=== PATIENT | male | born 1945 | race Caucasian/White ===

== ENCOUNTER → 2020-07-19 10:33 | Outpatient (CLI) | payer OTHER, SELFPAY ==
[2020-07-20 14:09] LABS: COVID19 Sendout Not Detected (Not Detect)
== END ==
PROVIDERS: PCP Family Medicine; Referring Provider Orthopaedic Surgery; Visit Provider Physician Assistant
DX: Z11.59 Encounter for screening for other viral diseases (principal)
CPT/HCPCS: 87635

== ENCOUNTER 2020-07-22 09:22 | Day surgery (SDC) | payer OTHER, SELFPAY ==
[2020-07-15 11:51] VITALS: BMI 23.7
[2020-07-22] VITALS (14 sets, daily range): BP systolic 109–156; BP diastolic 63–88; PULSE 61–94; RESP 10–20; TEMP 36.6–37.1; O2SAT 94–99; BMI 23.0
[2020-07-22] MEDS: LACTATED RINGERS 1,000 ML 42 ML IV ×2 (10:21→13:36)
[2020-07-22] MEDS: ACETAMINOPHEN 325 MG TABLET 975 MG PO (10:21)
[2020-07-22] MEDS: CELECOXIB 200 MG CAPSULE 400 MG PO (10:21)
--- NOTE | 2020-07-22 11:32 | PM.PREOP ---
Pre-operative Note COVID-19 COVID-19 status: Negative Result date/Date tested (Pos, Neg/Pending): 07/20/20 Interval Note History & Physical reviewed/Exam performed by Physician: Yes Changes to H&P: No
[2020-07-22] MEDS: CEFAZOLIN 2 GM/100 ML FROZ.PIGGY IV (12:18)
--- NOTE | 2020-07-22 12:58 | SUR.OPER ---
Lateral on padded OR bed. Gel axillary roll. Arms secured on padded armboard with pillow supporting top arm. Padded hip positioner braces x4 - anterior and posterior chest and pelvis. Additional gel pad used anterior pelvis. Gel pad under bottom leg from knee to foot and secured with tape over sheet.
[2020-07-22] MEDS: TRANEXAMIC ACID 1,000 MG VIAL 1000 MG IV ×2 (13:06→13:52)
[2020-07-22] MEDS: ROPIVACAINE 0.5% PF 20ML 60 ML, MORPHINE 4 MG, KETOROLAC 30 MG INJ (13:07)
--- NOTE | 2020-07-22 14:00 | P.OP_ITS ---
Operative Date/Time/Diagnoses Date of procedure: 07/22/20 Time of procedure: 14:00 Pre-op diagnosis: Right hip degenerative joint disease Post-op diagnosis: same Procedure & Clinicians Procedure: Right total hip arthroplasty (CPT code 08320 with preschool teacher's assistant) Same procedure as scheduled: Yes Indications: Patient is an 74-year-old male with severe right hip DJD. The patient has pain with activities and at rest, limited ambulation and activity tolerance, difficulties with ADLs, and failure of conservative treatment. We have discussed the nature of condition, treatment options, risks and benefits, and patient elects to proceed with total hip arthroplasty and gives informed consent. Surgeon: David Kirk Senior Test Analyst: Alia Stratton Anesthesia Type: General and Spinal Operative Notes Closure Type: primary Specimen(s): none sent Prosthetic devices, grafts, tissues, transplants, or devices: Acetabulum: Deluna and Nephew R3 acetabular component size 54 mm Femoral component: Deluna and Nephew Anthology stem size 10 with high offset Femoral head: 36 mm + 4 cobalt chrome Estimated Blood Loss (mL): 200 Blood products transfused: none Procedure in detail: After satisfaction induction of anesthetic, and administration of IV antibiotics, the patient was positioned in the lateral decubitus position with all bony prominences well padded and pelvic position secured using a hip area mechanic positioning device. Right hip and lower extremity prepped and draped in the usual sterile fashion, 1st dose of intravenous tranexamic acid was administered, then a longitudinal incision was created centered over the greater trochanter and carried sharply through the skin and subcutaneous tissues down to the fascia jack which was divided longitudinally and retracted with a Charnley retractor. External rotators visualize, cut, tagged, and retracted posteriorly, then the capsule was cut in a T-type fashion with the corners tagged and retracted. Hip was dislocated and femoral neck cut made according to preoperative templating. Acetabular retractors then placed, and the acetabular labrum and osteophytes were excised. The acetabulum was then sequentially reamed to 53 mm with an excellent circumferential ream and fit with the trial. The trial component was removed and a permanent size 54 mm Deluna and Nephew R3 acetabular component was selected, positioned, and impacted with satisfactory position and fixation achieved. Permanent liner was then inserted with the elevated lip directed posteriorly. Soft tissue then removed off the lateral femoral neck in the lateral neck was entered using a box osteotome. T- handled reamers placed down the canal followed by sequential broaching to 10 with the final broach left in place for trial reduction with high offset neck which demonstrated excellent leg length, range of motion, and stability characteristics with a 36 mm +4 trial ball. The trial and broach were removed, and a permanent size 10 high offset Deluna and Nephew Anthology stem was selected and inserted with excellent position and fixation achieved. Another trial reduction yielded the above characteristics so the trial ball was exchanged for a permanent 36 mm +4 cobalt chrome ball. The hip was irrigated and reduced and excellent leg length range of motion and stability characteristics were achieved and maintained. Periarticular tissues were infiltrated with ropivacaine, morphine, and Toradol. The hip was copiously irrigated, and the capsule repaired with #2 Ethibond, and the piriformis was repaired back to the greater trochanter with the same. Fascia jack closed with interrupted #1 Ethibond sutures, and the subcutaneous tissues were closed in 2 layers of 0 Vicryl and 2 0 Vicryl. Skin was closed with zip tie closure and sterile dressings applied. Second dose of tranexamic acid was administered intravenously, and the anesthetic was terminated. Complications: none Post-operative Condition: stable Disposition: PACU Plan for aftercare: Patient will be admitted to the acute care [facility], and anticipate discharge on postop day 1 with follow-up in office in 10-14 days. Outpatient physical therapy will be arranged and patient will continue to observe posterior hip precautions. Patient will continue use of postoperative aspirin for DVT prophylaxis.
--- NOTE | 2020-07-22 14:19 | DI.RAD.S_ITS ---
PROCEDURE: XR PELVIS 1-2V INDICATIONS: POST OPERATIVE TOTAL HIP TECHNIQUE: 1 view of the lower pelvis acquired. COMPARISON: None. FINDINGS: Bones: Patient is status post right hip arthroplasty, with hardware components in expected positions. The hip joint appears congruent. The visualized bony structures appear intact. Soft tissues: Overlying postoperative changes are noted. No suspicious soft tissue densities. IMPRESSION: Expected appearance of right hip arthroplasty. Dictated by: Brittnee Pearce M.D. on 07/22/2020 at 14:02 Approved by: Brittnee Pearce M.D. on 07/22/2020 at 14:03
[2020-07-22] MEDS: OXYCODONE IR 5 MG TABLET PO ×4 (14:26→21:10)
[2020-07-22] MEDS: ONDANSETRON 4 MG/2 ML INJ IV (14:26)
[2020-07-22] MEDS: HYDROMORPHONE 2 MG INJ IV (14:27)
--- NOTE | 2020-07-22 15:57 | PC.ADMIT ---
Admission Note: The patient,Christiano Burrell,74 y/o, was given written information regarding hospital policies, unit procedures and contact persons. Patient's smoking status: Former smoker. Pt arrived from PACU at approx 1540. Awake, A/O. Denies pain or nausea. Drsg to R. hip c/d/i. No drains. Able to wiggle toes. PPP. Oriented to room and call system. SCD's on. Bed alarm on. Pt verbalized he will call for needs. Vital Signs - 8 hr 07/22/20 10:23 07/22/20 14:06 07/22/20 14:11 Temperature 98.6 F 98 F Pulse Rate 61 80 81 Respiratory Rate 16 13 11 L Blood Pressure 156/88 H 127/71 121/70 Pulse Oximetry 97 96 95 07/22/20 14:16 07/22/20 14:21 07/22/20 14:27 Temperature Pulse Rate 76 76 74 Respiratory Rate 10 L 11 L 16 Blood Pressure 127/73 109/70 120/64 Pulse Oximetry 97 94 95 07/22/20 14:31 07/22/20 14:43 07/22/20 14:46 Temperature Pulse Rate 77 75 74 Respiratory Rate 11 L 12 11 L Blood Pressure 114/68 131/73 132/77 Pulse Oximetry 98 97 97
[2020-07-22] MEDS: LACTATED RINGERS 1,000 ML 125 ML IV (16:06)
[2020-07-22] MEDS: ASPIRIN EC 81 MG TABLET PO (21:03)
[2020-07-22] MEDS: DOXAZOSIN 4 MG TABLET PO (21:03)
[2020-07-22] MEDS: DOCUSATE 100 MG CAPSULE PO (21:03)
[2020-07-23] MEDS: LACTATED RINGERS 1,000 ML 125 ML IV (00:54)
[2020-07-23 01:00] VITALS: BP 114/62; PULSE 75; RESP 18; TEMP 37.1; O2SAT 97
[2020-07-23] MEDS: OXYCODONE IR 5 MG TABLET PO ×3 (02:02→11:47)
--- NOTE | 2020-07-23 02:38 | PC.NURSE ---
Initially seen and assessed at 2345. Patient alert and oriented. Breath sounds with inspiratory crackles in right LL and RA sat of 97%; discussed/encouraged use of incentive spirometer. HRR. Denied nausea. BT hypoactive; denies flatus. Had only voided 50cc on previous shift so assisted out of bed with walker and 1 assist and was able to urinate an additional 100cc dark renay urine; denied dysuria. Was able to move himself in bed. Bulky dressing to right hip is CDI. Chronic pain in neck, back and right shoulder but declined pain medication at that time. Was given pain medication at 0202 for right shoulder, neck and right hip pain; ice also applied to hip for comfort. CMS is intact. Wearing bilateral calf SCD's. Fall risk score is moderate; bed alarm is activated.
[2020-07-23 05:17] LABS: Hematocrit 26.3 % (41-53)
[2020-07-23 05:30] VITALS: BP 103/51; PULSE 70; RESP 18; TEMP 36.8; O2SAT 95
[2020-07-23 07:30] VITALS: BP 113/65; PULSE 72; RESP 15; TEMP 37.1; O2SAT 97
--- NOTE | 2020-07-23 07:36 | PM.PNPO.1 ---
Subjective Subjective Date Patient Seen: 07/23/20 Time Patient Seen: 07:36 Interval history: Patient's pain is moderate to severe. Patient has not been out of bed. Patient has been using bedside ureteral. His is home to assist him he has 1 step into his house. Denies fever chills. No nausea vomiting Exam Vital Signs (past 8 hours): - 07/23/20 01:00 07/23/20 05:30 Temperature 98.7 F 98.3 F Pulse Rate 75 70 Respiratory Rate 18 18 Blood Pressure 114/62 103/51 L Pulse Oximetry 97 95 Oxygen Delivery Method Room Air Oxygen Flow Rate 0 Narrative Exam Narrative: Pleasant 74-year-old male resting comfortably in bed in no apparent distress. Right hip dressing is clean, dry and intact. Both legs are warm and dry. Motor function is intact bilateral lower extremities. Sensation grossly intact to light touch bilateral lower extremities. Objective Labs Result Diagrams: 07/23/20 04:46 Labs: Laboratory Results - last 24 hr 07/23/20 04:46 Hgb 9.0 L Hct 26.3 L Assessment & Plan Post-op Postoperative Procedures: Procedures Operation Date: 07/22/20 11:45 Actual Procedures Side Surgeon p Total Hip Arthroplasty Right David Kirk MD Postop day 1 status post right total hip arthroplasty. Mobilize with physical therapy. Continue work on pain control. Likely discharge home tomorrow. Quality VTE Deep Vein Thrombosis/Pulmonary Embolism Present on Admission: No
[2020-07-23] MEDS: DOCUSATE 100 MG CAPSULE PO (09:07)
[2020-07-23] MEDS: TRAMADOL 50 MG TABLET PO (09:07)
[2020-07-23] MEDS: ASPIRIN EC 81 MG TABLET PO (09:07)
--- NOTE | 2020-07-23 10:17 | PT.IIE ---
Current Diagnoses Unilateral primary osteoarthritis, right hip (07/22/20) Surgery Performed Operation Date: 07/22/20 11:45 Actual Procedures p Total Hip Arthroplasty(Right) - David Kirk MD Surgical History (Last Updated 07/21/20 @ 10:21 by Sendy Murrell RN) Hx of bilateral cataract extraction (Acute 2017) Hx of hernia repair (Acute) Hx of tonsillectomy (Acute) Medical History (Last Updated 07/21/20 @ 12:14 by Sendy Murrell RN) Arthritis (Acute) Bilateral shoulder pain (Acute) Eczema (Acute) Elevated hemoglobin A1c (Acute) Head injuries (Acute) HTN (hypertension) (Acute) Hx of agent [place] exposure (Acute) Melanoma (Acute) Osteoarthritis (Acute) Pancreatitis (Acute) Physical Therapy Inpatient Evaluation/Re-Eval M1 PT/OT-IP Prior Functional Status Start: 07/23/20 08:39 Freq: NEEDED Status: Active Protocol: Document 07/23/20 10:17 AW (Rec: 07/23/20 12:21 AW [id number]) Medical Review Prior Functional Status Medical History Reviewed Yes Communication WNL Mobility and Gait Pt has used a SPC ~90% of the time since February when his left hip pain became sharply worse. Activities of Daily Living and IADL's Independent Social History Household Members spouse,children Living Arrangements House Number of Floors (Floors) One Floor Number of Stairs To Enter/Railing? Pt is able to drive to the back of the house, walk <50 feet and access the home via one platform step. Home Environment Standard Height Toilet,Tub/ Shower Home Equipment Front Wheel Walker,Straight Cane,Crutches,Raised Toilet Seat Without Armrests,Long Handled Shoe Horn,Machine Cage Maker,Sock Aid,Grab Bars In Shower Employment Status Retired Additional Social History Comment Pt lives with his , Alba, who is retired and will be available at discharge but will not be able to do any heavy lifting. His son, Fredo, also lives with him. He works [employer] assistant but is able to assist when he is around. M2 PT-IP Current Condition Start: 07/23/20 08:39 Freq: NEEDED Status: Active Protocol: Document 07/23/20 10:17 AW (Rec: 07/23/20 12:21 AW [id number]) Physical Therapy Current Condition Current Condition Evaluation Date 07/23/20 Treatment Diagnosis R SERGE with posterior approach; difficulty in walking Onset Date 07/22/20 Precautions Posterior Hip Precautions No Hip Flexion > 90 degrees,No Hip Internal Rotation,No Hip Adduction Weight Bearing Status Weight Bearing Status Weight Bear as Tolerated M3 PT-IP Subjective Start: 07/23/20 08:39 Freq: NEEDED Status: Active Protocol: Document 07/23/20 10:17 AW (Rec: 07/23/20 12:21 AW [id number]) Subjective Physical Therapy Visit Type Type Initial Evaluation Visit Start Time 09:28 Visit Stop Time 10:17 Total Visit Minutes 49 Notes Pt has chronic neck, back and shoulder pain Physical Therapy Visit Comments Patient Comments Pt has been hesitant to mobilize but is willing to attempt with PT Patient Goals To go home with family support . Therapy Pain Assessment Pain When Pain Assessed During Mobility Pain Present Pain Present Pain Reported Location Right Hip Intensity 3 Scale Used 2/10 at rest; 3/10 during mobility Pain Management Techniques Re-positioning,Timing of Activity with Medications M4 PT-IP Mobility and Gait Start: 07/23/20 08:39 Freq: NEEDED Status: Active Protocol: Document 07/23/20 10:17 AW (Rec: 07/23/20 12:21 AW [id number]) PT-Bed Mobility Assessment Supine to Sit Supine to Sit Standby Assistance Sit to Supine Sit to Supine Standby Assistance Scooting Scooting to Edge of Bed Standby Assistance PT-Transfer Assessment Sit to and From Stand Sit to and from Stand Standby Assistance,Use of Upper Extremities Equipment Transfer Assistive Device Gait Belt,Front Wheeled Walker Orthotic/Prosthetic Devices or Brace: No Transfers Transfer Destination Chair Transfer Technique pt ambulated with FWW Transfer Ability Level of Assist Standby Assistance Comments Mobility Comments Pt was sitting EOB with minimal complaint as PT arrived. After reviewing precautions, pt completed sit to stand SBA with FWW and cues to place RLE out in front for hip precautions. He ambulated to the toilet and pushed the walker frame over the bowl, standing to urinate with good standing balance. Pt then ambulated with FWW SBA to the sink where he was able to wash his hands without need for UE support. He ambulated around the unit for a total of 250 feet with FWW SBA, responding well to cues for equal step length and weightbearing. He completed stair training and returned to the room, transferring to the bed with use of strap to lift his operative leg SBA. He completed supine <> sit SBA and then transferred to the chair with good attention to hip precautions SBA. Pt was positioned on the chair with call light and all needs in reach. Gait Assessment Gait Gait Assistance Required: Standby Assistance Distance (Feet) 250 Able to Maintain Weight Bearing Status Yes During Gait Assistive Devices Assistive Device Gait Belt,Front Wheeled Walker Orthotic/Prosthetic Devices or Brace: No Gait Deviations General Gait Pattern Antalgic,Decreased Stride Length,Decreased Feet Clearance,Flexed Trunk,Step-to Gait Factors Limiting Gait Function Factors Limiting Gait Function Decreased Strength,Limited Range of Motion,Pain Comments Gait Comments Pt initiated gait with step-to patterning. In static stance, pt stands with excess R knee flexion indicating potential limb length discrepancy. In gait, pt tends to vault on RLE but is able to achieve heelstrike at initial contact bilaterally in response to cues. Stair Climbing Assessment Evaluation Level of Assist On Stairs Standby Assistance Devices Stair Climbing Assistive Devices Front Wheel Walker Technique/Endurance Stair Climbing Direction Ascend and Descend Stair Climbing Technique Step to Step Number of Steps Climbed 1 Query Text: Stair Climbing Set # Repetitions (reps) 2 Comments Stair Climbing Comments Pt completed platform step training and was able to verbally teach back strategy. PT-Balance Assessment Sitting Balance and Reactions Static Sitting Balance Ability Normal Dynamic Sitting Balance Ability Normal Standing Balance and Reactions Static Standing Balance Ability Good Dynamic Standing Balance Ability Good Device Used FWW M5 PT-IP Objective Assessments Start: 07/23/20 08:39 Freq: NEEDED Status: Active Protocol: Document 07/23/20 10:17 AW (Rec: 07/23/20 12:21 AW [id number]) Orientation Orientation/Cognition Level of Alertness Alert Orientation Name,Day of Week,Place, Situation Language Function Ability No Deficits Noted Safety Awareness Understands Safety Issues Memory Description No Deficits Noted Gross Range of Motion Upper Extremity ROM Assessment Within Functional Limits Lower Extremity ROM Assessment Right Impaired Strength Upper Extremity Strength Assessment Within Functional Limits Lower Extremity Strength Assessment Right Impaired Comments Strength Comments Pt has bilateral shoulder pain but is able to manage with FWW without increasing pain. Sensation Assessment Sensation Gross Sensation WNL Muscle Tone Muscle Tone WNL Yes M6 PT-IP Treatment Start: 09/24/20 08:39 Freq: NEEDED Status: Active Protocol: Document 07/23/20 10:17 AW (Rec: 07/23/20 12:21 AW [id number]) Physical Therapy Treatment Exercises Exercises Ankle Pumps,Gluteal Sets,Quad Sets,Heel Slides Education Education Provided Precautions,Weight Bearing Status,Post-Op Packet,Safety Other Treatments Other Treatment Performed Provided education on role of PT, plan of care, weightbearing status, posterior hip precautions, and rationale for use of FWW. M7 PT-IP Assessment and Plan Start: 07/23/20 08:39 Freq: NEEDED Status: Active Protocol: Document 07/23/20 10:17 AW (Rec: 07/23/20 12:21 AW [id number]) PT Summary Assessment and Plan Potential Rehabilitation Potential Good Status of Condition at Evaluation Stable Summary Impairments Pain,ROM,Strength,Balance,Bed Mobility,Transfers,Gait, Activity Tolerance Assessment Summary GUILLE is a 74 yo man seen for PT evaluation on POD1 following R SERGE with posterior approach. He is modified independent at baseline with use of SPC. On evaluation, pt required only SBA for all mobility with FWW. He has outpatient PT eval scheduled for early next week. Pt is safe for discharge to home environment with family assist and outpatient PT. Frequency of Treatment Frequency Of Treatment Discharge Recommendations To Nursing Amount of Assist Needed Standby Assistance Discharge Recommendations PT Discharge Recommendations Home with Assistance, Outpatient PT Transportation Needs at Discharge Private Vehicle
[2020-07-23 10:23] VITALS: PULSE 72; RESP 16; O2SAT 97
[2020-07-23] MEDS: METFORMIN HCL 500 MG TABLET PO (11:51)
[2020-07-23 11:54] LABS: Hematocrit 27.9 % (41-53); Hemoglobin 9.4 g/dL (13.5-17.5)
[2020-07-23 12:00] VITALS: BP 115/72; PULSE 81; RESP 15; TEMP 37.2; O2SAT 97
--- NOTE | 2020-07-23 14:26 | CM.MNRNOTE ---
Day shift: Bulky dressing remains CDI. Taken to car in WC by this rfp writer and Pt tolerated well getting into car driven by his spouse. Paperwork signed and all questions answered. Pt has all personal belongings. MD scripts sent electronic and Pt will pick-up today. Encouraged to drink plenty of water and ambulate as tolerated.
--- NOTE | 2020-07-23 14:39 | PM.DS.1 ---
History of Present Illness History of Present Illness Date Patient Seen: 07/23/20 Time Patient Seen: 14:39 Chief complaint: Right Total Hip Arthroplasty *OPB* Narrative: Pain mild. No fever chills. No nausea vomiting. No shortness breath and chest pain. Discharge Providers Provider Discharge Date: 07/23/20 Primary care physician: Sanju Bradley DO Consults: 07/22/20 15:46 Consult to Discharge Planning Routine Comment: Consult to Physical Therapy Evaluate & Treat Comment: Physician Instructions: post op SERGE protocol Consult to Respiratory Therapy Evaluate & Treat Comment: Physician Instructions: Evaluate and treat Discharge provider: Alexander Chang PA-C Summary Hospital Course Discharge Diagnosis: Right hip osteoarthritis Hospital Course: Procedure: Right total hip arthroplasty (CPT code 96361 with family practice physician assistant) Same procedure as scheduled: Yes Indications: Patient is an 74-year-old male with severe right hip DJD. The patient has pain with activities and at rest, limited ambulation and activity tolerance, difficulties with ADLs, and failure of conservative treatment. We have discussed the nature of condition, treatment options, risks and benefits, and patient elects to proceed with total hip arthroplasty and gives informed consent. Surgeon: David Kirk Senior Relationship Manager: Alia Stratton Anesthesia Type: General and Spinal Operative Notes Closure Type: primary Specimen(s): none sent Prosthetic devices, grafts, tissues, transplants, or devices: Acetabulum: Deluna and Nephew R3 acetabular component size 54 mm Femoral component: Deluna and Nephew Anthology stem size 10 with high offset Femoral head: 36 mm + 4 cobalt chrome Estimated Blood Loss (mL): 200 Blood products transfused: none Status at Discharge Cognitive/behavioral status at discharge: at baseline, oriented Functional status at discharge: uses cane/walker Overall status at discharge: patient is progressing back to baseline Time Spent with Patient Time spent: Less than 30 minutes Exam Vital Signs (past 8 hours): - 07/23/20 07:30 07/23/20 10:23 07/23/20 12:00 Temperature 98.8 F 99.0 F Pulse Rate 72 72 81 Respiratory Rate 15 16 15 Blood Pressure 113/65 115/72 Pulse Oximetry 97 97 97 Oxygen Delivery Method Room Air Oxygen Flow Rate 0 Narrative Exam Narrative: See progress note Objective Labs Result Diagrams: 07/23/20 10:58 Labs: Laboratory Results - last 24 hr 09/24/20 09/24/20 04:46 10:58 Hgb 9.0 L 9.4 L Hct 26.3 L 27.9 L Discharge Assessment & Plan Assessment and Plan Assessment: Patient did well with physical therapy and will be discharged home today in stable condition. Discharge Plan Discharge Plan Patient Disposition: Home Discharge Med Rec/Prescriptions Prescriptions: New aspirin 81 mg Tablet,Delayed Release (Dr/Ec) 81 mg PO BID Qty: 60 RF: 0 tramadol 50 mg Tablet 50 mg PO DAILY Qty: 60 RF: 0 ibuprofen 600 mg Tablet 600 mg PO TID PRN (Reason: Pain, Moderate (4-6)) Qty: 60 RF: 0 hydroxyzine pamoate 25 mg Capsule 25 mg PO Q6HR PRN (Reason: Spasms) Qty: 20 RF: 0 Continued metformin 500 mg Tablet 500 mg PO QNOON RF: 0 tramadol 50 mg Tablet 50 mg PO DAILY RF: 0 doxazosin 4 mg Tablet 4 mg PO BEDTIME RF: 0 Discontinued meloxicam 15 mg Tablet 15 mg PO Q OTHER DAY PRN (Reason: Pain) RF: 0 ibuprofen [Advil] 200 mg Tablet 600 mg PO TID PRN (Reason: Pain) RF: 0 Follow up/Referrals: Sanju Bradley DO [Primary Care Provider] - David Kirk MD [Physician] - (2 weeks) Discharge Orders: Discharge (Order); Ordered 07/23/20 Ordered By: Alexander Chang Provider Discharge Instructions Diet: Diet as Tolerated Activity: WBAT, Posterior hip precautions Cold/Heat Therapy: ice as needed Skin/Wound/Dressing Care Report to your healthcare provider any signs of infection, such as:: chills, fever, increased pain, unusual drainage and unusual redness Dressing: Keep clean and dry Visit Report/Discharge Packet Instructions: DI for Hip Replacement, How to Prevent Falls, Stool Softeners, Hydroxyzine Stand Alone Forms: Surgery Discharge Discharge Data Primary Care Provider: Sajnu Bradley Attending Provider: David Kirk Discharges patient from system. Discharge Date/Time: 07/23/20 14:27 Quality VTE Deep Vein Thrombosis/Pulmonary Embolism Present on Admission: No
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
== END 2020-07-23 14:27 | disposition home or self-care (01) ==
LOC: OR 09:27 → AC 12:15
PROVIDERS: Physician Assistant Medical; PCP Family Medicine; Referring Provider Family Medicine; Visit Provider Orthopaedic Surgery
PROC: 0SR90JZ Replacement of Right Hip Joint with Synthetic Substitute, Open Approach (ICD-10-PCS; CPT 27130; principal; 2020-07-22 11:45)
DX: M16.11 Unilateral primary osteoarthritis, right hip (principal); I10 Essential (primary) hypertension; E11.9 Type 2 diabetes mellitus without complications; Z79.84 Long term (current) use of oral hypoglycemic drugs
CPT/HCPCS: 27130; 36415; 72170; 82962; 85014; 85018; 97110; 97116; 97161; C1776; J0690; J1170; J1885; J2270; J2274; J2405; J2704; J2795

== ENCOUNTER → 2021-04-14 10:39 | Outpatient (CLI) | payer OTHER, SELFPAY ==
[2020-07-22 12:32] VITALS: BMI 23.0
[2021-04-14 13:49] LABS: COVID19 -Nasal RAPID Negative (Negative)
== END ==
PROVIDERS: PCP Family Medicine; Referring Provider Orthopaedic Surgery; Visit Provider Nurse Practitioner Family
DX: Z20.822 Contact with and (suspected) exposure to COVID-19 (principal)
CPT/HCPCS: 87635

== ENCOUNTER 2021-04-15 10:04 | Day surgery (SDC) | payer OTHER, SELFPAY ==
[2020-07-22 12:32] VITALS: BMI 23.0
[2021-04-09 13:54] VITALS: BMI 23.7
[2021-04-15] VITALS (8 sets, daily range): BP systolic 117–142; BP diastolic 69–91; PULSE 55–73; RESP 12–18; TEMP 35.6–37; O2SAT 95–97; BMI 23.0
[2021-04-15] MEDS: LACTATED RINGERS 1,000 ML 42 ML IV ×2 (10:50→13:21)
--- NOTE | 2021-04-15 11:31 | PM.PREOP ---
Pre-operative Note COVID-19 COVID-19 status: Negative Interval Note History & Physical reviewed/Exam performed by Physician: Yes Changes to H&P: No
--- NOTE | 2021-04-15 12:08 | SUR.PREOP ---
Block start time [1150] . Monitoring initiated and maintained throughout procedure. Oxygen and medications given per anesthesiologist instructions. Patient remained stable throughout procedure, no adverse reactions noted. Block end time [1200].
[2021-04-15] MEDS: CEFAZOLIN 1 GM VIAL 2 GM IV (12:10)
[2021-04-15] MEDS: SODIUM CHLORIDE IRRIG SOLUTION 3,000 ML, EPINEPHrine 1 MG IRR ×4 (12:25→12:55)
--- NOTE | 2021-04-15 12:35 | SUR.OPER ---
Beach chair with Maquet shoulder positioner. Lower body on padded OR bed. Head in foam padded head cradle, secured with straps. Non-operative arm secured <90 degrees abduction. Pillow under knees. Safety belt at thigh. Cloth tape over blanket over lower legs.
--- NOTE | 2021-04-15 12:35 | PM.PROC.1 ---
Procedures Date/Time Date of procedure: 04/15/21 Time of procedure: 11:50 General Procedure description: Ultrasound guided interscalene brachial plexus nerve block for post op pain control after right shoulder arthroscopy by Dr. Chandler. Risk and benefits of procedure discussed with patient. ASA monitoring applied to patient. O2 given via nasal cannula. 2 mg Versed and 50 mcg fentanyl given for procedural sedation. Skin site was prepped with chlorhexidine and allowed to fully dry. Sterile gloves, mask, hat and probe cover were used to maintain sterility. 2% lidocaine and 30ga needle was used to make a small skin wheal at needle insertion site. Under ultrasound guidance, a 21ga 50mm Pajunk needle was directed into the interscalene groove (middle/anterior scalenes) near the brachial plexus. Patient reported no parasthesias. After negative aspiration, 20 mL 0.5% ropivicaine and 10mg dexamethasone were injected around brachial plexus. Patient tolerated procedure well.
[2021-04-15] MEDS: LIDOCAINE 1% W/EPI 20 ML INJ (12:40)
--- NOTE | 2021-04-15 13:22 | P.OP_ITS ---
Operative Date/Time/Diagnoses Date of procedure: 04/15/21 Time of procedure: 12:00 Pre-op diagnosis: Right shoulder rotator cuff arthropathy Post-op diagnosis: same Procedure & Clinicians Procedure: Right shoulder arthroscopic extensive debridement as well as subacromial decompression and distal clavicle excision Same procedure as scheduled: Yes Indications: Right shoulder rotator cuff arthropathy Surgeon: Morris Chandler Sole Sewer Hand: Odilon Mckenzie Anesthesia Type: General and Peripheral nerve block Operative Notes Findings: Massive rotator cuff tear with retraction to the rim of the glenoid. Signs of a high riding humeral head with signs of articulation with the acromial arch. Mild arthritic changes to the glenohumeral joint. Extensive degenerative changes throughout the labrum. No sign of any biceps tearing. The entire humeral head was exposed from the rotator cuff tear. The subscapularis was still intact. Significant arthritic changes to the AC joint. Quite a bit of a subacromial and subdeltoid bursitis. Little to no excursion of the supraspinatus but was able to reduce the infraspinatus tendons back to the rotator cuff footprint. Closure Type: primary Specimen(s): none sent Estimated Blood Loss (mL): 5 Blood products transfused: none Procedure in detail: On date of service, Patient was met in the holding area. The operative site was signed and witnessed by the OR staff. The surgeries once again discussed with the patient and any remaining questions they had were answered fully. Patient was taken back to the operating theater and placed on the operating table in a supine position. Great care was taken to ensure that all bony prominences were properly padded. Patient was then placed into the beach chair position. The head and neck were properly positioned and secured. A timeout was performed verifying patient's name, procedure, and the operative site. The upper extremity was then prepped and draped in the normal sterile fashion. Previously, the bony anatomy and portal sites were marked out as well as injecte d with Marcaine with epinephrine. An 11 blade was used to make an incision in the posterior aspect of the shoulder. The camera was placed, and a diagnostic shoulder scope was performed. Findings listed above. Next under direct visualization, a anterior portal was made. Shaver was placed into the anterior portal and a extensive debridement of the glenohumeral joint was performed. Shaver was used to debride the degenerative changes throughout the labrum as well as the extensive tearing to the rotator cuff. Shaver was used to debride the bursal and articular surface of the rotator cuff as well as the extensive scar tissue buildup between the rotator cuff and the subacromial arch. Next the camera was placed into the subacromial space. A lateral portal was obtained under direct visualization. A combination of the shaver and vapor wand, a debridement of the inflamed tissue as well as inflamed bursa was performed. The lateral gutter was also cleaned out. The patient's entire humeral head was exposed due to the retraction of the rotator cuff to the rim of the glenoid. Shaver was used to clean up the greater tuberosity as well as removed a lot of the scar tissue on the acromial arch. S Next we turned our attention to the subacromial decompression. Next, a merced was then used to do a subacromial decompression. This allowed us to smooth out the undersurface of the acromion. Minimal bone was removed. This also allowed us to shave down the bony lesion in the acromial space. The bur was placed into the lateral portal as well as the anterior portal in order to do a complete s ubacromial decompression. We next turned our attention to the distal clavicle. Using the shaver and the vapor wand we were able to clean out all the soft tissue around the distal clavicle as well as into the a.c. joint. This gave us good visualization of the arthritic changes to the distal clavicle as well as good visualization of the inferior osteophytes coming off the distal clavicle. Using the merced in the anterior portal, we were able to remove the inferior osteophytes as well as do a distal clavicle excision removing 3-4 mm of bone. The camera was then placed into the anterior portal which gave us a direct visualization of the a.c. joint allowing us to assess the distal clavicle excision. As mentioned above, patient really had no excursion of the supraspinatus but still had good mobility of the infraspinatus. We were able to pull it back to the greater tuberosity back to the rotator cuff footprint. Due to these findings, patient might be a candidate for a superior capsular reconstruction. Patient's shoulder was then cleaned dried and dressed and patient was taken to the PACU in stable condition. Complications: none Post-operative Condition: stable Disposition: PACU
== END 2021-04-15 14:37 | disposition home or self-care (01) ==
PROVIDERS: PCP Family Medicine; Referring Provider Family Medicine; Visit Provider Orthopaedic Surgery
PROC: (CPT 29805; principal; 2021-04-15 12:00)
DX: M75.101 Unspecified rotator cuff tear or rupture of right shoulder, not specified as traumatic (principal); M12.811 Other specific arthropathies, not elsewhere classified, right shoulder; M75.51 Bursitis of right shoulder; R73.03 Prediabetes
CPT/HCPCS: 29823; 29826; 29824; 64450; J0171; J0690; J1100; J1885; J2250; J2405; J2704; J3010

== ENCOUNTER → 2021-10-01 11:06 | Outpatient (CLI) | payer OTHER, SELFPAY ==
[2020-07-22 12:32] VITALS: BMI 23.0
[2021-10-01 13:37] LABS: COVID19 -Nasal RAPID Negative (Negative)
== END ==
PROVIDERS: PCP Family Medicine; Referring Provider Orthopaedic Surgery Orthopaedic Surgery of the Spine; Visit Provider Nurse Practitioner Family
DX: Z20.822 Contact with and (suspected) exposure to COVID-19 (principal)
CPT/HCPCS: 87635

== ENCOUNTER 2021-10-04 10:16 | Day surgery (SDC) | payer OTHER, SELFPAY ==
[2020-07-22 12:32] VITALS: BMI 23.0
[2021-09-30 10:22] VITALS: BMI 25.4
[2021-10-04] VITALS (15 sets, daily range): BP systolic 110–140; BP diastolic 61–88; PULSE 59–95; RESP 10–19; TEMP 36.2–37.1; O2SAT 94–99; BMI 23.0
--- NOTE | 2021-10-04 | DI.RAD.S_ITS ---
PROCEDURE: XR LUMBAR SPINE 2-3V INDICATIONS: L5-S1 TLIF TECHNIQUE: 2 views of the lumbar spine were acquired. COMPARISON: None. FINDINGS: 2 intraoperative C-arm images demonstrating posterior/interbody fusion at the L5-S1 level with hardware and intervertebral spacer in expected position. IMPRESSION: C-arm images demonstrating posterior/interbody fusion L5-S1 with hardware and disc spacer in expected positions. Dictated by: Umer Diallo RR Interpreted: Mark Thibodeaux MD on 10/04/2021 at 15:10 Transcribed by: LINDA on 10/04/2021 at 15:11 Approved by: Mark Thibodeaux M.D. on 10/04/2021 at 16:00
[2021-10-04] MEDS: LACTATED RINGERS 1,000 ML 42 ML IV (11:23)
--- NOTE | 2021-10-04 11:42 | PM.PREOP ---
Pre-operative Note COVID-19 COVID-19 status: Negative Result date/Date tested (Pos, Neg/Pending): 10/02/21 Interval Note History & Physical reviewed/Exam performed by Physician: Yes Changes to H&P: No
[2021-10-04] MEDS: CEFAZOLIN 2 GM/20 ML SYRINGE IV ×2 (12:30→21:08)
--- NOTE | 2021-10-04 12:50 | SUR.OPER ---
Prone on spine table, head in foam head support, padded chest and pelvic supports, gel pad at knees, lower legs supported by pillows; nipples, genitalia and toes free of pressure, arms secured on foam padded arm boards at <90 degrees abduction. Tape over blanket at thigh secured to table.
[2021-10-04] MEDS: BUPIVACAINE LIPOSOME 266 MG/20 ML VIAL INJ (13:03)
[2021-10-04] MEDS: BUPIVACAINE 0.25% (PF) 30 ML, EPINEPHrine 0.15 MG INJ (13:04)
--- NOTE | 2021-10-04 14:50 | PM.OP.1 ---
Operative Date/Time/Diagnoses Date of procedure: 10/04/21 Time of procedure: 12:00 Pre-op diagnosis: 1. L5-S1 spinal stenosis with radiculopathy 2. L5-S1 epidural synovial cyst Post-op diagnosis: same Procedure & Clinicians Procedure: 1. L5-S1 Postero-lateral and posterior interbody fusion 2. L5-S1 interbody cage placement. 3. L5-S1 decompressive laminectomy with bilateral facetecomies 4. L5-S1 Posterior non-segmental instrumentation 5. [place] of bone marrow from iliac crest 6. Utilization of microsurgical technique and operating microscope Same procedure as scheduled: Yes Indications: Patient has been having chronic back pain and worsening lumbar radiculopathy. Patient failed multiple conservative management with worsening pain weakness and numbness in her lower extremity. Patient has been having difficulty performing activity of daily living. After discussing risks benefits of treatment options, patient elected proceed with surgery. Surgeon: Fabiola Bellamy Major Account Manager: Alexander Chang Click Yes if Unassisted: No Anesthesia Type: General Operative Notes Closure Type: primary Specimen(s): none sent Prosthetic devices, grafts, tissues, transplants, or devices: Globus revolve screws, Rise cage Estimated Blood Loss (mL): 50 Blood products transfused: none Procedure in detail: Patient was seen in the preoperative area. Risks and benefits of the surgery was discussed with the patient. Informed consent was obtained from the patient and placed in the chart. Surgical site was marked. Patient was taken to the operative room. General anesthesia was administered. Prophylactic antibiotic was given to the patient less than 30 min before the incision was made. Patient was placed into a prone position on the Gustavo table. Patient's back was then prepped and draped in the sterile fashion. Time-out was performed at this time. Using AP and lateral C-arm imaging the interval between L5-S1 was identified and marked on patient's back. A 2 inch incision 2 in from midline was made on the left side first. The fascia was incised in line with skin incision. Globus MARS retractors was placed inside the incision and docked onto the L5 lamina. Using microsurgical technique and operating microscope, a L5 laminectomy and L5-S1 facetectomy was performed using a Kerrison rongeur. Patient was found have severe neural foraminal stenosis and required a total facetectomy for decompression which rendered L5-S1 grossly unstable and required a fusion procedure at the same time. Patient has the nose this was largely contributed by a large epidural synovial cyst that was compressing on the thecal sac as well as the L5 and S1 nerve root. The cyst was removed using micro curette pituitary and Kerrison rongeur. The disc space at L5-S1 was identified. And a total diskectomy was performed at L5-S1 level. The endplates were decorticated using a rasp and shaver. The total diskectomy and decortication was performed at L5-S1 level in order to to accomplish a L5-S1 fusion. The local bone from the laminectomy and facetectomy was saved for local bone grafting. After the total diskectomy and decortication was completed, Trifecta bone graft material was combined with local bone that was harvested earlier. At this time, a separate skin is incision was made over the iliac crest. A Jamshidi needle was inserted into the iliac crest through a separate skin incision. 5 cc of bone marrow aspiration was obtained through the separate skin incision using a Jamshidi needle from the iliac crest. The bone marrow aspiration was combined with local bone and the Trifecta bone grafting material. The bone grafting material was placed into the L5-S1 interbody space along with a expandable cage. The cage was expanded to its maximum height using the torque limiting screwdriver. At this time a mirror image incision was made on the right side. The fascia was incised in line with the skin incision. Globus MARS retractor was inserted and docked onto the L5-S1 posterolateral gutter. Using the power drill, posterior-lateral decortication was performed at L5-S1 level until bleeding cortical bone was identified. The remaining bone grafting material was placed into the L5-S1 posterior lateral gutter he order to accomplish posterolateral fusion at the L5-S1 level. Using the double C-arm technique, pedicle screws were placed into the L5-S1 pedicles bilaterally. This was done by placing the Jamshidi needle into the pedicles, then placing the guidewires over the Jamshidi needle, and finally placing the cannulated screws over the guidewires bilaterally. After the pedicle screws were placed, 2 titanium rods was locked into the heads of the pedicle screws using locking caps and torque limiting screwdriver. After all the hardware was placed, and confirmed with AP and lateral C-arm imaging, the wound was then irrigated with sterile normal saline and packed with Ray-Rohan gauze for 3 min to accomplish hemostasis. After the gauze was removed the deep fascia was closed with #1 Vicryl suture. The subcutaneous layer was closed with 2-0 Vicryl. The skin was closed with skin harini. Patient tolerated the procedure well. There were no complications. Complications: none Post-operative Condition: stable Disposition: PACU Plan for aftercare: Admit to inpatient hospital
[2021-10-04] MEDS: fentaNYL 100 MCG/2 ML INJ IV ×2 (15:06→15:11)
[2021-10-04] MEDS: hydrOXYzine 50 MG/ML INJ IM (15:14)
[2021-10-04] MEDS: LORazepam 2 MG/ML INJ 0.25 MG IV (15:15)
[2021-10-04] MEDS: OXYCODONE/ACETAMINOPHEN 5/325 TABLET 1 TAB PO ×2 (15:28→16:05)
[2021-10-04] MEDS: HYDROMORPHONE 0.5 MG INJ IV (17:22)
[2021-10-04] MEDS: SODIUM CHLORIDE 0.9% 1,000 ML 100 ML IV (17:22)
--- NOTE | 2021-10-04 17:42 | PC.NURSE ---
Pt to room 213 via bed from PACU at 1650. Pt awake alert and oriented. Pt oriented to room, call light, bed controls, and tv controls. IV infusing as ordered, scd's on and running. Pain meds given for 7/10 pain-oriented Pt to pain med options. Dsg to back with shadow drainage to left side of gauze. Reminded Pt not to bend, lift, or twist and to logroll in/out of bed. Pt agrees to call for assistance as needed and to not get up without help.
[2021-10-04] MEDS: OXYCODONE IR 5 MG TABLET 10 MG PO ×2 (19:27→22:30)
[2021-10-04] MEDS: DOXAZOSIN 4 MG TABLET PO (21:08)
[2021-10-04] MEDS: SENNOSIDES 8.6 MG TABLET 17.2 MG PO (21:08)
[2021-10-04] MEDS: DOCUSATE 100 MG CAPSULE PO (21:14)
--- NOTE | 2021-10-04 22:16 | PC.NURSE ---
Patient is alert and oriented. Breath sounds diminished but CTA with RA sat of 97%. HRR. Denied nausea. BT hypoactive and has not yet passed any flatus following surgery. Had not voided at time of assessment but was able to void around 2100 and denied any dysuria. Is able to move himself in bed. Gait not assessed at this time. Dressing to back intact with serosanguinous drainage on left side; no leakage. Did complain of 7/10 pain and was medicated with Oxycodone and pain improved to 4/10; declines use of ice pack. Is wearing bilateral foot SCD's. Does have some numbness in feet which he states started about 2 weeks ago. Fall risk score is moderate and bed alarm is activated.
[2021-10-04] MEDS: hydrOXYzine pamoate 25 MG CAPSULE PO (22:30)
[2021-10-05 01:23] VITALS: BP 111/70; PULSE 68; RESP 16; TEMP 36.5; O2SAT 95
[2021-10-05] MEDS: OXYCODONE IR 5 MG TABLET 10 MG PO ×3 (01:28→08:34)
[2021-10-05] MEDS: HYDROMORPHONE 0.5 MG INJ IV (02:37)
[2021-10-05] MEDS: SODIUM CHLORIDE 0.9% 1,000 ML 100 ML IV (02:41)
[2021-10-05] MEDS: CEFAZOLIN 2 GM/20 ML SYRINGE IV (05:30)
[2021-10-05 08:15] VITALS: BP 123/79; PULSE 71; RESP 17; TEMP 37.3; O2SAT 97
[2021-10-05] MEDS: hydrOXYzine pamoate 25 MG CAPSULE PO (08:34)
[2021-10-05] MEDS: DOCUSATE 100 MG CAPSULE PO (08:49)
[2021-10-05] MEDS: INFLUENZA HD VACCINE 0.7 ML SYRINGE IM (08:53)
--- NOTE | 2021-10-05 09:51 | PC.NURSE ---
Addendum entered by Susanna Troncoso R.N. 10/05/21 12:43: Patient cleared by PT for discharge. Patient running low grade temp, 100.2, Tylenol administered. Patient denies chills. Dressing changed, xeroform, gauze and tegaderm applied. Patient tolerated. Patient denies pain with rest. Given discharge instructions regarding f/u with Dr. Bellamy, medication, activity restrictions, pain and wound care. Patient verbalized understanding. Denies belongings in safe or in pharmacy. Denies further needs at this time, IV removed without complication. Discharged via wheelchair with aide assist. Original Note: Patient resting in bed this AM, VSS, c/o back pain, spasm with movement, sitting at 90 degrees for breakfast, repositioned, applied ice and given OXY 10mg and Vistaril. DSG DI, moderate serosang drainage noted. Saline locked, eating and drinking, denies N/V, BT active x 4, reports belching but no flatus at this time. Urinating without complication. Denies numbness or tingling in his extremities, reports R shoulder pain as well. Bilat foot SCD's on. Patient denies further needs at this time. Call light in reach.
--- NOTE | 2021-10-05 10:10 | OT.IP.EVAL ---
Current Diagnoses Spinal stenosis, lumbar region without neurogenic claudication (10/04/21) Other bursal cyst, other site (10/04/21) Surgery Performed Operation Date: 10/04/21 12:15 Actual Procedures p L5-S1 TLIF(Not Applicable) - Fabiola Bellamy MD Past Medical History (Last Reviewed 10/05/21 @ 10:45 by Alexander Chang PA-C) Arthritis Bilateral shoulder pain Eczema Elevated hemoglobin A1c Head injuries History of total right hip arthroplasty (07/22/20) HTN (hypertension) Hx of agent [place] exposure Hx of bilateral cataract extraction (2016) Hx of hernia repair Hx of shoulder surgery Hx of tonsillectomy Melanoma Osteoarthritis Pancreatitis Surgical History (Last Reviewed 10/05/21 @ 10:45 by Alexander Chang PA-C) History of total right hip arthroplasty (07/22/20) Hx of bilateral cataract extraction (2016) Hx of hernia repair Hx of shoulder surgery Hx of tonsillectomy Occupational Therapy Inpatient Evaluation/Re-Eval M1 PT/OT-IP Prior Functional Status Start: 10/05/21 13:28 Freq: NEEDED Status: Discharge Protocol: Document 10/05/21 12:05 AB (Rec: 10/05/21 13:37 AB [id number]) Medical Review Prior Functional Status Medical History Reviewed Yes Communication able to make needs known Mobility and Gait pt stated that he is modified independent with all mobilities and ambulation without AD but uses a SPC depending on back pain Social History Household Members spouse Living Arrangements House Number of Floors (Floors) One Floor Number of Stairs To Enter/Railing? 2 steps L rail + R wall Home Environment High Toilet,Tub/Shower Home Equipment Front Wheel Walker,Straight Cane,Grab Bars Near Toilet Additional Social History Comment stated that spouse is limited to assistance she can provide to pt; son will be able to assist if needed but cannot stay home with pt to assist M1 PT/OT-IP Prior Functional Status Start: 10/05/21 14:41 Freq: NEEDED Status: Active Protocol: Document 10/05/21 10:10 [facility] (Rec: 10/05/21 14:54 [facility] [id number]) Medical Review Prior Functional Status Medical History Reviewed Yes Communication able to make needs known Mobility and Gait pt stated that he is modified independent with all mobilities and ambulation without AD but uses a SPC depending on back pain Activities of Daily Living and IADL's Pt able to do all his ADL and IADl needs on his own. Social History Household Members spouse Living Arrangements House Number of Floors (Floors) One Floor Number of Stairs To Enter/Railing? 2 steps L rail + R wall Home Environment High Toilet,Tub/Shower Home Equipment Front Wheel Walker,Straight Cane,Grab Bars Near Toilet Additional Social History Comment stated that spouse is limited to assistance she can provide to pt; son will be able to assist if needed but cannot stay home with pt to assist M2 OT-IP Current Condition Start: 10/05/21 14:41 Freq: Status: Active Protocol: Document 10/05/21 10:10 [facility] (Rec: 10/05/21 14:54 [facility] [id number]) Occupational Therapy Current Condition Current Condition Evaluation Date 10/05/21 Treatment Diagnosis S/p L5-S1 TLIF Diagnosis Onset Date 10/04/21 Post Operative Precautions Lumbar Precautions Log Roll,No Twisting,Limit Bending,Lifting Restriction of 10 lbs,Gait Belt above Incisional Area M3 OT- IP Subjective and Pain Start: 10/05/21 14:41 Freq: Status: Active Protocol: Document 10/05/21 10:10 [facility] (Rec: 10/05/21 14:54 [facility] [id number]) OT- Subjective Occupational Therapy Visit Type Type Initial Evaluation Visit Start Time 09:25 Visit Stop Time 10:10 Total Visit Minutes 45 Occupational Therapy Visit Comments Patient Comments Pt agreed to get up for OT eval. Patient/Caregiver Goals TO go home. OT Pain Assessment Pain When Pain Assessed At Rest Pain Present Pain Present Pain Reported Location back Intensity 7 Scale Used Numeric (0 - 10) M4 OT- IP ADL's Start: 10/05/21 14:41 Freq: Status: Active Protocol: Document 10/05/21 10:10 [facility] (Rec: 10/05/21 14:54 [facility] [id number]) OT ADL-Grooming General Evaluation Grooming Ability Standby Assistance Areas Needing Assistance Retrieving/Set-up of Grooming Items OT ADL-Oral Care General Eval Oral Care Ability Independent Comments Oral Care Comments Educated to spit into a cup or hinge at his hips to lean to spit into the sink to best follow his back precautions. OT ADL-Dressing General Eval Lower Body Dressing Ability Standby Assistance Comments OT Dressing Comments Pt able to comfortably cross his legs in over to kenneth/doff his socks. Educated pt that it maybe easier to use the baby stroller rental clerk to assist. OT ADL-Toileting General Evaluation Toileting Ability Standby Assistance Comments OT Toileting Comments Pt able to stand with the FWW over the toielt to urinate. OT ADL-Bathing Comments OT Bathing Comments Suggested a shower chair woudl be helpful for safety. M5 OT- IP IADL's Start: 10/05/21 14:41 Freq: Status: Active Protocol: Document 10/05/21 10:10 [facility] (Rec: 10/05/21 14:54 [facility] [id number]) OT-Instrumental Activities of Daily Living Deficits IADL Deficits Identified Deficits Home Safety Awareness Awareness of Need for Assistance at Home Good Awareness Ability to Problem Solve Emergency Able to Problem Solve Situations Medication Management Medication Management Comments Pt's able to assist pt as needed but not physically. M6 OT- IP Functional Cognition Start: 10/05/21 14:41 Freq: Status: Active Protocol: Document 10/05/21 10:10 [facility] (Rec: 10/05/21 14:54 [facility] [id number]) Cognitive Factors Limiting Selfcare Function Cognitive Ability Level of Alertness Alert Patient Orientation Name,Place,Situation Attention Span Ability Capable of Focused Attention, Capable of Sustained Attention Ability to Follow Commands Able to Follow One Step Commands Safety Awareness Decreased Ability to Apply Precautions Cognitive Comments Cognitive Assessment Comments Pt needing cues to apply his back precautions. OT- Vision and Hearing OT- Hearing Assessment OT- Hearing Assessment WFL OT- Vision Assessment Visual Acuity Glasses All The Time M7 OT- IP Mobility and Balance Start: 10/05/21 14:41 Freq: Status: Active Protocol: Document 10/05/21 10:10 [facility] (Rec: 10/05/21 14:54 [facility] [id number]) OT- Bed Mobility Assessment Rolling Type of Rolling Roll to Right Level of Assistance Standby Assistance Supine to Sit Supine to Sit Assist Standby Assistance Scooting Scooting to Edge of Bed Standby Assistance Scooting Up and Down in Bed Standby Assistance OT-Transfer Assessment Sit to and From Stand Sit to and from Stand Standby Assistance Transfers Transfer Ability Standby Assistance Technique Transfer Destination Bed,Car Devices Transfer Assistive Devices Gait Belt,Front Wheeled Walker Comments Mobility Comments Pt needing initial education for log rolling to to be sure to push with his hands when coming up to stand from the bed or recliner. Pt heavy use on his hands on the FWW. OT- Balance Assessment Sitting Balance and Reactions Static Sitting Balance Ability Good Dynamic Sitting Balance Ability Good Standing Balance and Reactions Static Standing Balance Ability Fair Dynamic Standing Balance Ability Poor M9 OT- IP Assessment and Plan Start: 10/05/21 14:41 Freq: Status: Active Protocol: Document 10/05/21 10:10 [facility] (Rec: 10/05/21 14:54 [facility] [id number]) OT Summary Assessment and Plan Potential Rehabilitation Potential Good Analytic Complexity at Evaluation Low Summary OT Impairments Pain,Balance,Functional Mobility,Dressing,Toileting, Bathing,Toilet Transfers, Shower Transfers Progress Towards Goals Progressing Toward Goals Assessment Summary Pt low complexity and main barriers are pain, steps and now needing one person assist for needs. Pt has a supportive to assist but can not lift and son that can come and help out. Suggested pt to use a urinal or call for help at [facility], and maybe beneficial to have a shower chair at home to use for showering needs. Pt to go home with assist when medically stable. Goals Dressing Goal Independent Toileting Goal Independent Bathing Goal Standby Assistance Toilet Transfer Goal Independent Shower Transfer Goal Standby Assistance Patient/Caregiver Education Goal Demonstrate Post-Op Precautions Days to Meet Goals 3 Frequency of Treatment Frequency Of Treatment Once a Day Treatment Plan OT Treatment Plan ADL Training,Functional Cognition Training,Functional Mobility,Patient/Family Education,Discharge Planning Discharge Recommendations OT Discharge Recommendations Home with Assistance Home Equipment Needs shower chair Transportation Needs at Discharge Private Vehicle
--- NOTE | 2021-10-05 10:43 | PM.DS.1 ---
History of Present Illness History of Present Illness Date Patient Seen: 10/05/21 Time Patient Seen: 10:43 Chief complaint: Back pain Narrative: Patient's pain is been moderate to severe. Denies fever or chills. No nausea or vomiting. Discharge Providers Provider Discharge Date: 10/05/21 Primary care physician: Sanju Bradley DO Consults: 10/04/21 16:41 Consult to Occupational Therapy Evaluate & Treat Comment: Physician Instructions: Evaluate and treat Consult to Physical Therapy Evaluate & Treat Comment: Physician Instructions: Evaluate and Treat Discharge provider: Alexander Chang PA-C Summary Hospital Course Discharge Diagnosis: 1. L5-S1 spinal stenosis with radiculopathy 2. L5-S1 epidural synovial cyst Hospital Course: 1.? L5-S1 Postero-lateral and posterior interbody fusion 2. L5-S1 interbody cage placement. 3. L5-S1 decompressive laminectomy with bilateral facetecomies 4. L5-S1 Posterior non-segmental instrumentation 5. Foss of bone marrow from iliac crest 6. Utilization of microsurgical technique and operating microscope Same procedure as scheduled: Yes Indications: Patient has been having chronic back pain and worsening lumbar radiculopathy. Patient failed multiple conservative management with worsening pain weakness and numbness in her lower extremity.? Patient has been having difficulty performing activity of daily living.? After discussing risks benefits of treatment options, patient elected proceed with surgery. Surgeon: Fabiola Bellamy Leather Production Worker: Alexander Chang Click Yes if Unassisted: No Anesthesia Type: General Operative Notes Closure Type: primary Specimen(s): none sent Prosthetic devices, grafts, tissues, transplants, or devices: Globus revolve screws, Rise cage Estimated Blood Loss (mL): 50 Blood products transfused: none Patient admitted to the hospital for the above-mentioned procedure. Patient consented to the same. Patient underwent surgery on October 04, 2021. Patient back in his room recovering well as in stable condition. Patient will be discharged home today after physical therapy if safe for home environment. Exam Vital Signs (past 8 hours): - 10/05/21 08:15 Temperature 99.2 F Pulse Rate 71 Respiratory Rate 17 Blood Pressure 123/79 Pulse Oximetry 97 Oxygen Delivery Method Room Air Oxygen Flow Rate 0 Narrative Exam Narrative: 75-year-old male resting comfortably in bedside chair in no apparent distress. Dressing is Clean, dry, intact.. Motor functions intact bilateral lower extremities. Sensation grossly intact to light touch bilateral lower extremities. [facility] Medical History Arthritis Bilateral shoulder pain Eczema Elevated hemoglobin A1c Head injuries HTN (hypertension) Hx of agent [place] exposure Melanoma Osteoarthritis Pancreatitis Surgical History History of total right hip arthroplasty (07/22/20) Hx of bilateral cataract extraction (2017) Hx of hernia repair Hx of shoulder surgery Hx of tonsillectomy Social History household members: spouse and children Smoking Status: Former smoker alcohol intake: former Discharge Assessment & Plan Assessment and Plan Assessment: Patient progressing as expected Plan of Treatment: Discharge home today in stable condition Discharge Plan Discharge Plan Patient Disposition: Home Provider Discharge Comment: Discharge home today after physical therapy Discharge orders & Medications Discharge Orders: Discharge (Order); Ordered 10/05/21 Ordered By: Alexander Chang Prescriptions: New acetaminophen 325 mg Tablet 650 mg PO Q6HR PRN (Reason: Pain, Mild (1-3)) Qty: 60 0RF docusate sodium 100 mg Capsule 100 mg PO BID Qty: 20 0RF oxycodone 5 mg Tablet 10 mg PO Q3HR PRN (Reason: Pain, Severe (7-10)) Qty: 60 0RF hydroxyzine pamoate 25 mg Capsule 25 mg PO Q4HR PRN (Reason: Nausea And Vomiting) Qty: 30 0RF hydromorphone [Dilaudid] 2 mg tablet 2 mg PO Q6H PRN (Reason: pain) Qty: 20 0RF Rx Instructions: Take 1 tablet every 6 hours as needed for breakthrough pain Continued hydroxyzine pamoate [Vistaril] 25 mg capsule 25 mg PO TID-QID PRN (Reason: spasms) Qty: 60 0RF metformin 500 mg Tablet 500 mg PO QNOON 0RF doxazosin 4 mg Tablet 4 mg PO BEDTIME 0RF Discontinued Advil 600 mg PO DAILY 0RF Follow up/Referrals: Sanju Bradley DO [Primary Care Provider] - Fabiola Bellamy MD [Physician] - (2 weeks) Diet/Activity/Treatments Diet: Carb-consistent/Diabetic Activity: Limit bending, lifting, twisting Cold/Heat Therapy: Apply ice to back as needed Skin/Wound/Dressing Care Report to your healthcare provider any signs of infection, such as:: chills, fever, increased pain, unusual drainage and unusual redness Dressing: Keep dressing clean and dry Visit Report/Discharge Packet Instructions: DI for Transforaminal Lumbar Interbody Fusion Stand Alone Forms: Surgery Discharge Discharge Data Primary Care Provider: Sanju Bradley Attending Provider: Fabiola Bellamy VTE Deep Vein Thrombosis/Pulmonary Embolism Present on Admission: No
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
[2021-10-05 12:00] VITALS: BP 124/77; PULSE 77; RESP 18; TEMP 37.9; O2SAT 97
--- NOTE | 2021-10-05 12:05 | PT.IIE ---
Current Diagnoses Spinal stenosis, lumbar region without neurogenic claudication (10/04/21) Other bursal cyst, other site (10/04/21) Surgery Performed Operation Date: 10/04/21 12:15 Actual Procedures p L5-S1 TLIF(Not Applicable) - Fabiola Bellamy MD Medical History (Last Reviewed 10/05/21 @ 10:45 by Alexander Chang PA-C) Arthritis Bilateral shoulder pain Eczema Elevated hemoglobin A1c Head injuries HTN (hypertension) Hx of agent Lyman exposure Melanoma Osteoarthritis Pancreatitis Physical Therapy Inpatient Evaluation/Re-Eval M1 PT/OT-IP Prior Functional Status Start: 10/05/21 13:28 Freq: NEEDED Status: Active Protocol: Document 10/05/21 12:05 AB (Rec: 10/05/21 13:37 AB [email or web address]) Medical Review Prior Functional Status Medical History Reviewed Yes Communication able to make needs known Mobility and Gait pt stated that he is modified independent with all mobilities and ambulation without AD but uses a SPC depending on back pain Social History Household Members spouse Living Arrangements House Number of Floors (Floors) One Floor Number of Stairs To Enter/Railing? 2 steps L rail + R wall Home Environment High Toilet,Tub/Shower Home Equipment Front Wheel Walker,Straight Cane,Grab Bars Near Toilet Additional Social History Comment stated that spouse is limited to assistance she can provide to pt; son will be able to assist if needed but cannot stay home with pt to assist M2 PT-IP Current Condition Start: 10/05/21 13:28 Freq: NEEDED Status: Active Protocol: Document 10/05/21 12:05 AB (Rec: 10/05/21 13:37 AB [email or web address]) Physical Therapy Current Condition Current Condition Evaluation Date 10/05/21 Treatment Diagnosis s/p L5S1 TLIF; difficulty in walking Onset Date 10/04/21 M3 PT-IP Subjective Start: 10/05/21 13:28 Freq: NEEDED Status: Active Protocol: Document 10/05/21 12:05 AB (Rec: 10/05/21 13:37 AB [email or web address]) Subjective Physical Therapy Visit Type Type Initial Evaluation Visit Start Time 12:05 Visit Stop Time 12:35 Total Visit Minutes 30 Number of FINAL TESTER Visits 0 Physical Therapy Visit Comments Patient Comments pt is agreeable to do PT Therapy Pain Assessment Pain When Pain Assessed At Rest Pain Present Pain Present Pain Reported Location back Intensity 6 Scale Used 8/10 with mobility Pain Management Techniques Apply Cold,Modification of Treatment,Re-positioning, Timing of Activity with Medications M4 PT-IP Mobility and Gait Start: 10/05/21 13:28 Freq: NEEDED Status: Active Protocol: Document 10/05/21 12:05 AB (Rec: 10/05/21 13:37 AB [id number]) PT-Bed Mobility Assessment Rolling Type of Rolling Log Rolling Level of Assist Standby Assistance Supine to Sit Supine to Sit Standby Assistance Sit to Supine Sit to Supine Standby Assistance PT-Transfer Assessment Sit to and From Stand Sit to and from Stand Standby Assistance,1 Person Assistance Equipment Transfer Assistive Device Bed Rail,Gait Belt Orthotic/Prosthetic Devices or Brace: No Transfers Transfer Destination Bed Transfer Technique ambulated using FWW Transfer Ability Level of Assist Standby Assistance,Contact Guard Assistance Comments Mobility Comments pt sitting on chair. Pt tends to direct his own care. reviewed back precautions and pt initially requires cues to recall but able to recall after education. completed sit to stand from chair CGA and ambulated in room ~ 20 ft CGA. antalgic gait with increase R knee flexion and pt stated that he had a hip surgery ~ 2 years ago and the doctor made it 1 inch longer. pt ambulated to EOB and completed log roll bed mobility SBA. completed sit to stand from EOB SBA and ambulated to the stairs using FWW SBA ~ 125 ft. completed up/down steps B rails SBA. pt descended stairs backwards SBA as per pt 's preference. pt ambulated back to the room using FWW SBA . sat back on chair. ice pack provided. call light and table placed within reach. Gait Assessment Gait Gait Assistance Required: Standby Assistance,Contact Guard Assist Distance (Feet) 125 Able to Maintain Weight Bearing Status Yes During Gait Assistive Devices Assistive Device Gait Belt,Front Wheeled Walker Orthotic/Prosthetic Devices or Brace: No Gait Deviations General Gait Pattern Antalgic,Decreased Stride Length,Step-to Gait Factors Limiting Gait Function Factors Limiting Gait Function Decreased Activity Tolerance, Decreased Strength,Limited Range of Motion,Pain,Poor Balance,Poor Safety Awareness Comments Gait Comments pls refer to mobility section for details Stair Climbing Assessment Evaluation Level of Assist On Stairs Standby Assistance Devices Stair Climbing Assistive Devices Left Railing,Right Railing Technique/Endurance Stair Climbing Direction Ascend and Descend Stair Climbing Technique Step to Step Number of Steps Climbed 3 Query Text: PT-Balance Assessment Sitting Balance and Reactions Static Sitting Balance Ability Good Dynamic Sitting Balance Ability Good Standing Balance and Reactions Static Standing Balance Ability Fair Dynamic Standing Balance Ability Fair Device Used FWW M5 PT-IP Objective Assessments Start: 10/05/21 13:28 Freq: NEEDED Status: Active Protocol: Document 10/05/21 12:05 AB (Rec: 10/05/21 13:37 AB [email or web address]) Orientation Orientation/Cognition Level of Alertness Alert Orientation Name Language Function Ability No Deficits Noted Safety Awareness Decreased Safety Awareness Memory Description No Deficits Noted Gross Range of Motion Lower Extremity ROM Assessment Within Functional Limits Strength Lower Extremity Strength Assessment Within Functional Limits Sensation Assessment Sensation Gross Sensation Left LE Impaired Sensation Description Numbness Comments Sensation Comments c/o B feet numbness Muscle Tone Muscle Tone WNL Yes M6 PT-IP Treatment Start: 10/05/21 13:28 Freq: NEEDED Status: Active Protocol: Document 10/05/21 12:05 AB (Rec: 10/05/21 13:37 AB [email or web address]) Physical Therapy Treatment Education Education Provided Precautions,Weight Bearing Status,Safety M7 PT-IP Assessment and Plan Start: 10/05/21 13:28 Freq: NEEDED Status: Active Protocol: Document 10/05/21 12:05 AB (Rec: 10/05/21 13:37 AB [email or web address]) PT Summary Assessment and Plan Potential Rehabilitation Potential Good Status of Condition at Evaluation Stable Summary Impairments Pain,ROM,Strength,Balance, Coordination,Sensation,Tone, Cognition,Bed Mobility, Transfers,Gait,Activity Tolerance Assessment Summary pt requiring SBA with mobility using FWW. pt plans to go home. spouse and son will be able to assist. pt may go home when medically stable. Goals Bed Mobility Goal Independent Transfer Goal Independent,Front Wheeled Walker Gait Goal Independent,Front Wheel Walker Gait Distance 300 Other Goals up/down 2 steps L rail + R wall mod I Frequency of Treatment Frequency Of Treatment Twice a Day Treatment Plan Physical Therapy Treatment Plan Bed Mobility Training,Transfer Training,Gait Training, Therapeutic Exercise,Balance Retraining,Post Op Education, Discharge Planning,Hot or Cold Pack,Neuromuscular Re-ed, Coordination Retraining,Manual Therapy Precautions Lumbar Precautions Log Roll,No Twisting,Limit Bending,Lifting Restriction of 10 lbs,Gait Belt above Incisional Area Recommendations To Nursing Amount of Assist Needed 1 Person Assist Discharge Recommendations PT Discharge Recommendations Home with Assistance Transportation Needs at Discharge Private Vehicle
== END 2021-10-05 13:50 | disposition home or self-care (01) ==
LOC: OR 10:18 → AC 10:18
PROVIDERS: PCP Family Medicine; Referring Provider Orthopaedic Surgery Orthopaedic Surgery of the Spine; Visit Provider Orthopaedic Surgery Orthopaedic Surgery of the Spine
PROC: (CPT 22633; principal; 2021-10-04 12:15)
DX: M48.061 Spinal stenosis, lumbar region without neurogenic claudication (principal); M71.38 Other bursal cyst, other site; M54.17 Radiculopathy, lumbosacral region; I10 Essential (primary) hypertension; R73.03 Prediabetes
CPT/HCPCS: 22633; 20939; 22840; 22853; 63047; 72100; 76000; 82962; 90471; 90662; 97161; 97165; 97530; 97535; C1776; C9290; J0171; J0330; J0690; J1100; J1170; J2060; J2250; J2405; J2704; J3010; J3410